=== PATIENT | female | born 1985 | race Hispanic/Latino ===

== ENCOUNTER 2016-11-26 16:30 | Emergency (ER) | payer OTHER ==
[2016-11-26 17:13] VITALS: TEMP 99; O2SAT 98
--- NOTE | 2016-11-26 17:34 | ED.PDOC ---
History of Present Illness - General Chief Complaint: Lower Extremity Injury Stated Complaint: right knee pain Time Seen by Provider: 11/26/16 17:33 Source: patient Exam Limitations: no limitations - History of Present Illness Initial Comments: She stated playing soccer today and twisted right knee.Denies previous injury in the past. Occurred: this morning Pain - Lower Extremity: moderate: Right Knee Method of Injury: twisted Improving Factors: rest Worsening Factors: movement Allergies/Adverse Reactions: Allergies NO KNOWN ALLERGY Allergy (Verified 07/24/16 23:03) Home Medications: Ambulatory Orders Naproxen [Naprosyn] 500 mg PO BID #20 tab 11/26/16 Review of Systems - Review of Systems Constitutional: States: no symptoms reported EENTM: States: no symptoms reported Respiratory: States: no symptoms reported Cardiology: States: no symptoms reported Gastrointestinal/Abdominal: States: no symptoms reported Genitourinary: States: no symptoms reported Musculoskeletal: States: see HPI Skin: States: no symptoms reported Neurological: States: no symptoms reported Endocrine: States: no symptoms reported Hematologic/Lymphatic: States: no symptoms reported Past Medical History (General) - Patient Medical History Hx Seizures: No Hx Stroke: No Hx Dementia: No Hx Asthma: No Hx of COPD: No Hx Cardiac Disorders: No Hx Congestive Heart Failure: No Hx Pacemaker: No Hx Hypertension: No Hx Thyroid Disease: No Hx Diabetes: No Hx Gastroesophageal Reflux: No Hx Renal Disease: No Hx Cancer: No Hx of HIV: No Hx Hepatitis C: No Hx MRSA: No Surgical History: cholecystectomy - Vaccination History Hx Tetanus, Diphtheria Vaccination: No Hx Influenza Vaccination: No - Social History Hx Tobacco Use: No Hx Alcohol Use: No - Female History Patient is a Female of Child Bearing Age (10 -59 yrs old): Yes Hx Last Menstrual Period: 11/08/16 Patient : No Family Medical History - Family History Mother Family History: No Known Physical Exam - Physical Exam General Appearance: Alert, No apparent distress Eyes, Ears, Nose, Throat: PERRL/EOMI, normal ENT inspection, TMs normal Neck: non-tender, full range of motion, supple Cardiovascular/Respiratory: regular rate, rhythm, no M/R/G, normal peripheral pulses, no JVD Gastrointestinal/Abdominal: non-tender, no organomegaly Back: normal inspection, no CVA tenderness, no vertebral tenderness Thigh/Hip: normal inspection, non-tender, no evidence of injury Leg: normal inspection, no evidence of injury Knee: limited ROM - right because of pain, pain, soft tissue tenderness, other - no instability noted Ankle: normal inspection, no evidence of injury Foot: normal inspection, no evidence of injury Neuro/Tendon: normal sensation, normal motor functions, normal tendon functions , responds to pain Mental Status: alert, oriented x 3 Skin: normal color, warm/dry Progress - EKG/XRAY/CT XRAY: knee - no fracture right knee Departure - Departure Clinical Impression: Strain of right knee Qualifiers: Encounter type: initial encounter Qualifier Code: (S86.911A) Strain of unspecified muscle(s) and tendon(s) at lower leg level, right leg, initial encounter Time of Disposition: 18:40 Disposition: Discharge to Home or Self Care Condition: Good Departure Forms: ED Discharge - Pt. Copy, Patient Portal Self Enrollment Instructions: DI for Knee Sprain Prescriptions: Naproxen [Naprosyn] 500 mg PO BID #20 tab Home Medications: Ambulatory Orders Naproxen [Naprosyn] 500 mg PO BID #20 tab 11/26/16
--- NOTE | 2016-11-26 18:33 | RAD ---
Procedure: XR KNEE 1-2 VIEWS Exam Date: 11/26/2016 Ordering Provider: Boston Lee Clinical Indication: knee pain-hurt while playing soccer Comparison: None FINDINGS: There is no fracture or dislocation. The articular surfaces of the right knee are intact. There is no significant joint space narrowing. No lytic or sclerotic lesions. No joint effusion. No subcutaneous gas. IMPRESSION: 1. Negative exam of the right knee. Electronically signed by: Manuel Alonso MD 11/26/2016 6:32 PM CDT
[2016-11-26 19:15] VITALS: BP 110/69
== END 2016-11-26 19:15 | disposition home or self-care (01) ==
LOC: ER 16:30
DX: S86.911A Strain of unspecified muscle(s) and tendon(s) at lower leg level, right leg, initial encounter (principal); X50.1XXA Overexertion from prolonged static or awkward postures, initial encounter; Y93.66 Activity, soccer

== ENCOUNTER 2018-12-20 20:55 | Emergency (ER) | payer OTHER ==
[2018-12-20] MEDS ORDERED: SODIUM CHLORIDE 0.9% 1000ML 1,000 ML IVS ONE (21:14)
[2018-12-20] MEDS ORDERED: ONDANSETRON ODT 8 MG TAB SL ONE (21:14)
--- NOTE | 2018-12-20 21:17 | ED.PDOC ---
History of Present Illness - General Chief Complaint: GI Problem Stated Complaint: nausea and emesis x 1 day Time Seen by Provider: 12/20/18 21:14 Information Source: patient, family Exam Limitations: no limitations - History of Present Illness Initial Comments: patient comes in today with sudden onset of epigastric abdominal pain nausea and vomiting. Patient stated that she was eating a salad at lunchtime and then suddenly became ill. No one else was eating the same food and no one else has gotten sick. She has no fever or chills. Her pain is pretty much resolved since she was able to have considerable emesis just prior to arrival. No diarrhea. She's had some tightening of her stomach but no overt contractions. Good movement and no vaginal bleeding. Patient reports she is 28 weeks . She states she's had no difficulties with this . Her past medical history is negative with the exception of kidney stones that she did have to have surgically removed. Patient has no known drug allergies. She denies any dysuria or vaginal discharge. Abdominal Pain Onset Location: epigastric Pain Radiation: no radiation Quality: mild, cramping Timing/Duration: 4-6 hours Improving Factors: other - emesis Worsening Factors: nothing Associated Symptoms: nausea/vomiting Review of Systems - Review of Systems Constitutional: States: no symptoms reported. Denies: chills, fever EENTM: States: no symptoms reported. Denies: eye pain, ear pain, nose congestion, throat pain Respiratory: States: no symptoms reported. Denies: cough, short of breath Cardiology: States: no symptoms reported. Denies: chest pain, palpitations Gastrointestinal/Abdominal: States: see HPI, abdominal pain, nausea, vomiting. Denies: constipation, diarrhea Genitourinary: States: no symptoms reported. Denies: dysuria, hematuria Musculoskeletal: States: no symptoms reported Skin: States: no symptoms reported Past Medical History (General) - Patient Medical History Hx Seizures: No Hx Stroke: No Hx Dementia: No Hx Asthma: No Hx of COPD: No Hx Cardiac Disorders: No Hx Congestive Heart Failure: No Hx Pacemaker: No Hx Hypertension: No Hx Thyroid Disease: No Hx Diabetes: No Hx Gastroesophageal Reflux: No Hx Renal Disease: No Hx Cancer: No Hx of HIV: No Hx Hepatitis C: No Hx MRSA: No - Vaccination History Hx Tetanus, Diphtheria Vaccination: No Hx Influenza Vaccination: No - Social History Hx Tobacco Use: No Hx Alcohol Use: No - Female History Hx Last Menstrual Period: 11/08/16 Patient : No Family Medical History - Family History Mother Family History: No Known Physical Exam - Physical Exam General Appearance: Alert, Comfortable, No apparent distress Eyes, Ears, Nose, Throat Exam: PERRL/EOMI, normal ENT inspection, TMs normal, pharynx normal Neck: non-tender, full range of motion, supple, normal inspection Respiratory: chest non-tender, lungs clear, normal breath sounds, no respiratory distress Cardiovascular/Chest: normal peripheral pulses, regular rate, rhythm, no edema, no murmur Peripheral Pulses: No deficit Gastrointestinal/Abdominal: normal bowel sounds, non tender, soft, other - gravid with FHT of 148 on u/s and good movement seen Back Exam: no CVA tenderness Progress - Progress Progress: 12/20/18 22:02 patient doing better. No pain now. - Results/Orders Results/Orders: 12/20/18 21:14 Sodium Chloride 0.9% 1000ML [Ns 1000 ml] 1,000 ml IVS ONCE Laboratory Results WBC 9.8 K/mm3 (4.8-10.8) 12/20/18 21:20 RBC 4.89 M/mm3 (4.20-5.40) 12/20/18 21:20 Hgb 12.9 gm/dL (12.0-16.0) 12/20/18 21:20 Hct 38.7 % (36.0-47.0) 12/20/18 21:20 MCV 79.2 fl (81.0-99.0) L 12/20/18 21:20 MCH 26.4 pg (27.0-31.0) L 12/20/18 21:20 MCHC 33.3 g/dL (33.0-37.0) 12/20/18 21:20 RDW 14.2 % (11.5-14.5) 12/20/18 21:20 Plt Count 235 K/mm3 (130-400) 12/20/18 21:20 MPV 8.3 fl (7.40-10.4) 12/20/18 21:20 Absolute Neuts (auto) 7.80 K/uL (1.8-6.8) H 12/20/18 21:20 Absolute Lymphs (auto) 1.30 K/uL (1.0-3.4) 12/20/18 21:20 Absolute Monos (auto) 0.60 K/uL (0.2-0.8) 12/20/18 21:20 Absolute Eos (auto) 0.00 K/uL (0.0-0.4) 12/20/18 21:20 Absolute Basos (auto) 0.00 K/uL (0.0-0.1) 12/20/18 21:20 Neutrophils % 79.4 % (42.0-78.0) H 12/20/18 21:20 Lymphocytes % 13.7 % (20.0-50.0) L 12/20/18 21:20 Monocytes % 6.2 % (2.0-9.0) 12/20/18 21:20 Eosinophils % 0.4 % (1.0-5.0) L 12/20/18 21:20 Basophils % 0.3 % (0.0-2.0) 12/20/18 21:20 Sodium 138 mmol/L (135-145) 12/20/18 21:20 Potassium 3.4 mmol/L (3.6-5.0) L 12/20/18 21:20 Chloride 107 mmol/L (101-111) 12/20/18 21:20 Carbon Dioxide 21 mmol/L (21-31) 12/20/18 21:20 Anion Gap 13.4 (12-18) 12/20/18 21:20 BUN 11 mg/dL (7-18) 12/20/18 21:20 Creatinine < 0.40 mg/dL (0.6-1.3) L 12/20/18 21:20 BUN/Creatinine Ratio 27.0 (10-20) H 12/20/18 21:20 Random Glucose 89 mg/dL (70-105) 12/20/18 21:20 Serum Osmolality 274.6 mOsm/L (275-295) L 12/20/18 21:20 Calcium 8.2 mg/dL (8.4-10.2) L 12/20/18 21:20 Total Bilirubin 0.5 mg/dL (0.2-1.0) 12/20/18 21:20 AST 21 IU/L (10-42) 12/20/18 21:20 ALT 22 IU/L (10-60) 12/20/18 21:20 Alkaline Phosphatase 79 IU/L (42-121) 12/20/18 21:20 Serum Total Protein 7.3 gm/dL (6.4-8.2) 12/20/18 21:20 Albumin 3.4 g/dl (3.2-5.5) 12/20/18 21:20 Globulin 3.9 gm/dL (2.3-3.5) H 12/20/18 21:20 Albumin/Globulin Ratio 0.9 (1.1-1.9) L 12/20/18 21:20 Urine Color Yellow (Yellow) 12/20/18 21:36 Urine Appearance Cloudy (Clear) 12/20/18 21:36 Urine pH 8.5 (4.5-7.8) H 12/20/18 21:36 Ur Specific [place] 1.015 (1.005-1.030) 12/20/18 21:36 Urine Protein 30 mg/dL 12/20/18 21:36 Urine Glucose (UA) Negative mg/dL (Negative) 12/20/18 21:36 Urine Ketones >=160 mg/dL (NEGATIVE) 12/20/18 21:36 Urine Blood Negative (Negative) 12/20/18 21:36 Urine Nitrite Negative 12/20/18 21:36 Urine Bilirubin Negative (NEGATIVE) 12/20/18 21:36 Urine Urobilinogen 1.0 mg/dL (0.2-1.0) 12/20/18 21:36 Ur Leukocyte Esterase Small (Negative) H 12/20/18 21:36 Urine RBC 0-1 /hpf 12/20/18 21:36 Urine WBC 1-3 /hpf 12/20/18 21:36 Ur Epithelial Cells 20-30 /hpf 12/20/18 21:36 Amorphous Sediment 3+ 12/20/18 21:36 Urine Bacteria 3+ H 12/20/18 21:36 Departure - Departure Clinical Impression: Gastroenteritis Disposition: Discharge to Home or Self Care Condition: Good Departure Forms: ED Discharge - Pt. Copy, Patient Portal Self Enrollment Diet: bland diet Referrals: Kishore Conklin MD [Primary Care Provider] - 1-2 Weeks Prescriptions: Ondansetron Odt [Zofran ODT] 8 mg PO TID PRN #10 tab PRN Reason: Nausea Home Medications: Ambulatory Orders Naproxen [Naprosyn] 500 mg PO BID #20 tab 11/26/16 Ondansetron Odt [Zofran ODT] 8 mg PO TID PRN #10 tab 12/20/18 Additional Instructions: slow return to normal diet. Follow up with PCP on Sunday. Return to ER for contractions, intractable emesis, decrease in movement.
[2018-12-20 22:15] VITALS: O2SAT 98
[2018-12-20 22:43] VITALS: BP 110/60; TEMP 97.5
== END 2018-12-20 22:40 | disposition home or self-care (01) ==
LOC: ER 20:55
DX: O99.613 Diseases of the digestive system complicating pregnancy, third trimester (principal); K52.9 Noninfective gastroenteritis and colitis, unspecified; Z3A.28 28 weeks gestation of pregnancy; Z87.442 Personal history of urinary calculi
CPT/HCPCS: 80053; 81001; 85025; J7030